=== PATIENT | female | born 1940 | race African-American/Black ===

== ENCOUNTER 2018-02-11 15:09 | Emergency (ER) | payer MEDICARE ==
[~2018-02-11] VITALS: Ht 165.1 cm; Wt 90.0 kg
[~2018-02-11 15:09] MED LIST: DILT240C11 PO; INSLAN SQ; INSU100C6 SQ; LOSA1TAB37 PO
[2018-02-11 16:22] LABS: BASOPHILS % 0.5 % (0.0-2.0); EOSINOPHILS % 0.6 % (0.0-5.0); HEMATOCRIT. 34.6 % (36.0-48.0); HEMOGLOBIN. 11.1 g/dL (12.0-16.0); LYMPHOCYTES % 25.9 % (20.0-50.0); MEAN CORPUSCULAR HEMOGLOBIN 27.5 pg (28.0-32.0); MEAN CORPUSCULAR VOLUME 85.6 fL (81.0-99.0); MEAN PLATELET VOLUME 8.3 fl (7.4-10.4); MONOCYTES % 10.4 % (2.0-8.0); NEUTROPHILS % 62.6 % (40.0-76.0); PLATELET 219 x1000/uL (130-400); RED BLOOD CELL COUNT 4.04 mill/uL (4.2-5.4); RED CELL DISTRIBUTION WIDTH 15.4 % (11.6-14.6)
[2018-02-11 16:24] LABS: CHLORIDE 105 mEq/L (98-107)
[2018-02-11 16:25] LABS: PROTHROMBIN TIME 10.5 sec (9.4-11.6)
[2018-02-11] MEDS ORDERED: LOSARTAN POTASSIUM 50 MG TABLET PO ONE (17:30)
[2018-02-11] MEDS ORDERED: LOSARTAN POTASSIUM 50 MG TABLET PO SCH (18:30)
[2018-02-11 18:42] VITALS: BP 177/103
== END 2018-02-11 18:47 | disposition home or self-care (01) ==
LOC: ER 16:27
DX: I10 Essential (primary) hypertension (principal); R11.0 Nausea; R06.02 Shortness of breath; E11.9 Type 2 diabetes mellitus without complications; Z88.0 Allergy status to penicillin; Z79.4 Long term (current) use of insulin; Z88.2 Allergy status to sulfonamides
CPT/HCPCS: 36415; 71045; 80053; 84484; 85025; 85610; 93005; 99285

== ENCOUNTER 2018-07-14 13:16 | Inpatient (IN) | payer MEDICARE ==
[~2018-07-14] VITALS: Ht 165.1 cm; Wt 77.1 kg
[2018-07-14] MEDS ORDERED: SODIUM CHLORIDE 0.9% 1000ML BAG (SEPSIS BOLUS) IV ONE (14:45)
[2018-07-14 15:30] LABS: BASOPHILS % 0.2 % (0.0-2.0); EOSINOPHILS % 1.9 % (0.0-5.0); HEMATOCRIT. 28.9 % (36.0-48.0); HEMOGLOBIN. 9.3 g/dL (12.0-16.0); LYMPHOCYTES % 15.5 % (20.0-50.0); MEAN CORPUSCULAR HEMOGLOBIN 27.5 pg (28.0-32.0); MEAN CORPUSCULAR VOLUME 85.3 fL (81.0-99.0); MEAN PLATELET VOLUME 8.7 fl (7.4-10.4); MONOCYTES % 9.2 % (2.0-8.0); NEUTROPHILS % 73.2 % (40.0-76.0); PLATELET 141 x1000/uL (130-400); RED BLOOD CELL COUNT 3.39 mill/uL (4.2-5.4); RED CELL DISTRIBUTION WIDTH 13.9 % (11.6-14.6)
[2018-07-14 15:33] LABS: CHLORIDE 107 mEq/L (98-107)
[2018-07-14 15:51] LABS: CLARITY URINE CLEAR (CLEAR); COLOR URINE YELLOW (YELLOW); KETONES URINE NEGATIVE (NEGATIVE); LEUKOCYTE ESTERASE URINE NEGATIVE (NEGATIVE); NITRITE URINE NEGATIVE (NEGATIVE); OCCULT BLOOD URINE NEGATIVE (NEGATIVE); PH URINE 5.5 (4.5-8.0); PROTEIN URINE 1+ (NEGATIVE); SPECIFIC GRAVITY URINE 1.008 (1.005-1.030); UROBILINOGEN URINE 0.2 E.U./dL (0.2-1.0)
[2018-07-14 18:00] VITALS: BP 185/81
[2018-07-14] MEDS ORDERED: COR25 PO (18:09)
[2018-07-14] MEDS ORDERED: HYDR-4135 MT (18:09)
[2018-07-14] MEDS ORDERED: GABA-529 MT (18:11)
[2018-07-14] MEDS ORDERED: ATOR10TA69 MT (18:11)
[2018-07-14 18:28] VITALS: BP 185/87
[2018-07-14] MEDS: CLONIDINE 0.1MG TABLET PO PRN (19:53)
[2018-07-14 20:00] VITALS: BP 182/68
[2018-07-14] MEDS: GABAPENTIN 100MG CAPSULE PO SCH (21:50)
[2018-07-14 22:00] VITALS: BP 155/54
[2018-07-14 22:00] LABS: T4 FREE 1.01 ng/dL (0.76-1.46)
[2018-07-14] MEDS ORDERED: HYDRALAZINE HCL 25MG TABLET PO SCH (22:00)
[2018-07-14 22:43] LABS: VITAMIN B12 SERUM 448 pg/mL (211-911)
[2018-07-14] MEDS: ATORVASTATIN CALCIUM 10MG TABLET PO SCH (23:04)
[2018-07-14] MEDS: PANTOPRAZOLE 40MG DR TABLET PO SCH (23:05)
[2018-07-14] MEDS: CARVEDILOL 25MG TABLET PO SCH (23:09)
[2018-07-15 00:24] VITALS: BP 160/67
[2018-07-15 04:00] VITALS: BP 192/80
[2018-07-15] MEDS: CLONIDINE 0.1MG TABLET PO PRN ×2 (04:46→13:24)
[2018-07-15] MEDS: PANTOPRAZOLE 40MG DR TABLET PO SCH ×2 (06:25→20:04)
[2018-07-15] MEDS: GABAPENTIN 100MG CAPSULE PO SCH ×3 (06:25→21:35)
[2018-07-15] MEDS ORDERED: DEXTROSE 50% WATER 50ML SYRINGE IV PRN (06:30)
[2018-07-15 06:49] LABS: BASOPHILS % 0.4 % (0.0-2.0); EOSINOPHILS % 2.1 % (0.0-5.0); HEMATOCRIT. 27.8 % (36.0-48.0); HEMOGLOBIN. 9.5 g/dL (12.0-16.0); LYMPHOCYTES % 25.3 % (20.0-50.0); MEAN CORPUSCULAR HEMOGLOBIN 28.7 pg (28.0-32.0); MEAN CORPUSCULAR VOLUME 84.1 fL (81.0-99.0); NEUTROPHILS % 62.2 % (40.0-76.0); PLATELET 144 x1000/uL (130-400); RED CELL DISTRIBUTION WIDTH 13.9 % (11.6-14.6)
[2018-07-15] MEDS: BLOOD SUGAR DIAGNOSTIC STRIP TEST SCH ×4 (07:08→20:05)
[2018-07-15] MEDS: INSULIN LISPRO 100 UNITS/ML SUBCUT SCH ×4 (07:09→20:21)
[2018-07-15 07:25] LABS: CHLORIDE 109 mEq/L (98-107)
[2018-07-15 08:00] VITALS: BP 186/76
[2018-07-15] MEDS: CARVEDILOL 25MG TABLET PO SCH (08:43)
[2018-07-15] MEDS: LOSARTAN POTASSIUM 100 MG TABLET PO SCH (08:43)
[2018-07-15] MEDS ORDERED: HYDRALAZINE HCL 25MG TABLET PO SCH (09:00)
[2018-07-15 12:00] VITALS: BP 173/78
[2018-07-15] MEDS ORDERED: TEMAZEPAM 15MG CAPSULE PO PRN (14:45)
[2018-07-15] MEDS: FUROSEMIDE 40MG/4ML VIAL IVP SCH (15:48)
[2018-07-15] MEDS: POTASSIUM CHLORIDE 20MEQ TABLET SR PO SCH (15:48)
[2018-07-15] MEDS: ENOXAPARIN 40MG/0.4ML SYR SUBCUT SCH (15:50)
[2018-07-15 16:00] VITALS: BP 175/67
[2018-07-15] MEDS ORDERED: LEVOFLOXACIN 500MG PREMIX 100 ML IV NR (16:00)
[2018-07-15 20:00] VITALS: BP 167/75
[2018-07-15] MEDS: CARVEDILOL 6.25 MG TABLET PO SCH (20:04)
[2018-07-15] MEDS: ATORVASTATIN CALCIUM 10MG TABLET PO SCH (20:04)
[2018-07-15] MEDS: ACETAMINOPHEN 325MG TABLET PO PRN (20:30)
[2018-07-15] MEDS ORDERED: HYDRALAZINE HCL 50MG TABLET PO SCH (21:00)
[2018-07-15] MEDS: HYDRALAZINE HCL 50MG TABLET PO SCH (21:35)
[2018-07-16] VITALS: BP 146/74
[2018-07-16] MEDS: ACETAMINOPHEN 325MG TABLET PO PRN ×2 (03:38→11:27)
[2018-07-16] MEDS: CLONIDINE 0.1MG TABLET PO PRN (03:58)
[2018-07-16 04:00] VITALS: BP 176/79
[2018-07-16] MEDS ORDERED: NITROGLYCERIN OINT 1GM/INCH UDPKT TD PRN (04:30)
[2018-07-16] MEDS ORDERED: HYDRALAZINE 10 MG in SODIUM CHLORIDE 0.9% 49.5 ML IV PRN (05:00)
[2018-07-16] MEDS: HYDRALAZINE HCL 50MG TABLET PO SCH ×2 (06:00→13:21)
[2018-07-16] MEDS: GABAPENTIN 100MG CAPSULE PO SCH ×2 (06:43→14:15)
[2018-07-16] MEDS: PANTOPRAZOLE 40MG DR TABLET PO SCH (06:43)
[2018-07-16] MEDS: BLOOD SUGAR DIAGNOSTIC STRIP TEST SCH ×2 (07:18→12:20)
[2018-07-16] MEDS: INSULIN LISPRO 100 UNITS/ML SUBCUT SCH ×2 (07:41→12:50)
[2018-07-16 08:00] VITALS: BP 157/76
[2018-07-16] MEDS: POTASSIUM CHLORIDE 20MEQ TABLET SR PO SCH (08:27)
[2018-07-16] MEDS: ENOXAPARIN 40MG/0.4ML SYR SUBCUT SCH (08:27)
[2018-07-16] MEDS: LOSARTAN POTASSIUM 100 MG TABLET PO SCH (08:27)
[2018-07-16] MEDS: CARVEDILOL 6.25 MG TABLET PO SCH (08:28)
[2018-07-16] MEDS: FUROSEMIDE 40MG/4ML VIAL IVP SCH (08:28)
[2018-07-16] MEDS ORDERED: LEVOFLOXACIN 250MG PREMIX 50 ML IV SCH (09:00)
[2018-07-16 12:00] VITALS: BP 158/69
[2018-07-16 15:00] VITALS: BP 155/63
[2018-07-16 16:00] VITALS: BP 155/65
== END 2018-07-16 16:10 | disposition home or self-care (01) | DRG 638 ==
LOC: ER 13:16 → ENRESERV 15:14 → 6EST 17:17 → EDBEDREQTM 17:19 → EDBEDREQ 17:19
PROVIDERS: ADMIT Internal Medicine; ATTEND Internal Medicine
DX: E11.649 Type 2 diabetes mellitus with hypoglycemia without coma (principal); E44.0 Moderate protein-calorie malnutrition; D64.9 Anemia, unspecified; I16.0 Hypertensive urgency; E11.22 Type 2 diabetes mellitus with diabetic chronic kidney disease; I12.9 Hypertensive chronic kidney disease with stage 1 through stage 4 chronic kidney disease, or unspecified chronic kidney disease; N18.9 Chronic kidney disease, unspecified; Z79.4 Long term (current) use of insulin; Z79.899 Other long term (current) drug therapy; Z68.28 Body mass index [BMI] 28.0-28.9, adult; Z88.0 Allergy status to penicillin; Z88.2 Allergy status to sulfonamides; Z91.041 Radiographic dye allergy status
CPT/HCPCS: 36415; 71045; 80053; 80061; 81003; 82607; 82962; 83540; 83550; 83605; 83880; 84439; 84443; 84484; 85025; 87040; 87086; 93005; 96360; 96361; 99285; C1893; J1650; J1940; J1956; J7030; J7040

== ENCOUNTER 2024-10-12 14:35 | Emergency (ER) | payer MEDICARE ==
[~2024-10-12] VITALS: Ht 162.6 cm; Wt 68.0 kg
[~2024-10-12 14:35] MED LIST changes: +ATOR10TA69 MT; +COR25 PO; +DILT-108 PO; -DILT240C11 PO; +GABA-529 MT; +HYDR50TA40 MT
[2024-10-12 14:42] VITALS: O2SAT 99
[2024-10-12] MEDS: ONDANSETRON HCL 4MG/2ML INJ IV STA ×2 (15:37→19:33)
[2024-10-12] MEDS: SODIUM CHLORIDE 0.9% 1,000 ML IV ONE (15:37)
[2024-10-12 16:02] LABS: BASOPHILS % 0.2 % (0.0-2.0); EOSINOPHILS % 0.4 % (0.0-5.0); HEMATOCRIT. 37.5 % (36.0-48.0); HEMOGLOBIN. 11.6 g/dL (12.0-16.0); LYMPHOCYTES % 11.6 % (20.0-50.0); MEAN CORPUSCULAR HEMOGLOBIN 27.4 pg (28.0-32.0); MEAN CORPUSCULAR HGB CONC 30.8 g/dL (31.0-37.0); MEAN CORPUSCULAR VOLUME 88.8 fL (81.0-99.0); MEAN PLATELET VOLUME 8.5 fl (7.4-10.4); MONOCYTES % 3.5 % (2.0-8.0); NEUTROPHILS % 84.3 % (40.0-76.0); PLATELET 189 x1000/uL (130-400); RED BLOOD CELL COUNT 4.23 mill/uL (4.2-5.4); WHITE BLOOD COUNT 10.6 x1000/uL (4.5-11.0)
[2024-10-12 16:06] LABS: CHLORIDE 106 mEq/L (98-107); POTASSIUM 4.4 mEq/L (3.5-5.1); SODIUM 139 mEq/L (136-145)
[2024-10-12 16:07] LABS: CARBON DIOXIDE 22 mEq/L (21-32); PROTHROMBIN TIME 11.4 sec (9.6-11.0)
[2024-10-12 16:12] LABS: CREATININE 1.6 mg/dL (0.6-1.0); GLUCOSE 122 mg/dL (70-105); UREA NITROGEN BLOOD 28 mg/dL (9-23)
[2024-10-12 16:14] LABS: PHOSPHORUS 2.5 mg/dL (2.5-4.9)
[2024-10-12 16:18] LABS: TROPONIN I HIGH SENSITIVITY < 4 ng/L (3.0-34)
[2024-10-12 16:31] LABS: CLARITY URINE CLEAR (CLEAR); COLOR URINE YELLOW (YELLOW); GLUCOSE URINE NEGATIVE (NEGATIVE); KETONES URINE 1+ (NEGATIVE); LEUKOCYTE ESTERASE URINE TRACE (NEGATIVE); NITRITE URINE NEGATIVE (NEGATIVE); OCCULT BLOOD URINE NEGATIVE (NEGATIVE); PROTEIN URINE NEGATIVE (NEGATIVE); SPECIFIC GRAVITY URINE 1.013 (1.005-1.030); UROBILINOGEN URINE 0.2 E.U./dL (0.2-1.0)
[2024-10-12 16:59] LABS: BACTERIA URINE TRACE; SQUAMOUS EPITHELIAL CELL URINE FEW /lpf (RARE/1+)
[2024-10-12 17:00] LABS: RBC URINE 0-2 /hpf (0-2); WBC URINE 0-2 /hpf (0-2)
[2024-10-12] MEDS ORDERED: ONDA-239 PO (19:55)
[2024-10-12 20:20] VITALS: BP 151/70; PULSE 90; RESP 17; TEMP 37.00296; O2SAT 99
== END 2024-10-12 20:34 | disposition home or self-care (01) ==
LOC: ER 14:35
DX: R53.1 Weakness (principal); R11.0 Nausea; E11.9 Type 2 diabetes mellitus without complications; I10 Essential (primary) hypertension; Z88.0 Allergy status to penicillin; Z88.2 Allergy status to sulfonamides; Z88.8 Allergy status to other drugs, medicaments and biological substances; Z79.899 Other long term (current) drug therapy; Z79.4 Long term (current) use of insulin
CPT/HCPCS: 99284; 96374; 96361; 80048; 81003; 83690; 83735; 84100; 85025; 85610; 84484; 36415; 93005; 96376; J2405